=== PATIENT | male | born 1955 | race Caucasian/White ===

== ENCOUNTER 2021-07-05 15:13 | Emergency (ER) | payer MEDICARE, BC ==
--- NOTE | 2021-07-05 16:11 | EDM.PDOC ---
ED HPI GENERAL MEDICAL PROBLEM - General Stated Complaint: FISH HOOK IN LEFT THUMB Time Seen by Provider: 07/05/21 15:45 - History of Present Illness INITIAL COMMENTS - FREE TEXT/NARRATIVE: Pt comes in with a fish hook embedded in the Lt thumb, distal aspect. Happened while fishing today. He is not on any blood thinners. He thinks he may be current on Tetanus status. ED ROS GENERAL - Review of Systems Review Of Systems: Comprehensive ROS is negative, except as noted in HPI. Skin: Reports: Other (fish hook in lt thumb.) ED EXAM, GENERAL - Physical Exam Exam: See Below Skin Exam: Other (1 hook of a treble hook is embedded in the distal Lt thumb. No active bleeding.) Course - Re-Assessments/Exams Free Text/Narrative Re-Assessment/Exam: 07/05/21 16:08 I cleansed the area with alcohol, then used 1% Lidocaine for local anesthesia. Then I taped off the other hooks. Then using the string / yank method removed the hook on the 1st attempt. Pt tolerated the procedure well. Gauze was held to the site for a couple minutes. Nursing then applied a band - aid. He is to monitor for infection. Keep the site covered for a couple days. He is going home tomorrow - He is to call his clinic back home and check on his last Tetanus shot. He has no further questions. Departure - Departure Time of Disposition: 15:55 Disposition: Home, Self-Care 01 Condition: Good Clinical Impression: Fish hook injury of left thumb Qualifiers: Encounter type: initial encounter Qualified Code(s): S69.92XA - Unspecified injury of left wrist, hand and finger(s), initial encounter - Discharge Information *PRESCRIPTION DRUG MONITORING PROGRAM REVIEWED*: No *COPY OF PRESCRIPTION DRUG MONITORING REPORT IN PATIENT ELISA: No Instructions: Puncture Wound, [id number] Referrals: PCP,None [Primary Care Provider] - Additional Instructions: Notify your provider to see if you were given a Tetanus 5 years ago if not see provider to Tetanus. Monitor sign of infection, increased redness pain or swelling
== END 2021-07-05 15:54 | disposition home or self-care (01) ==
LOC: LB.ED 15:13
DX: S60.352A Superficial foreign body of left thumb, initial encounter (principal); W45.8XXA Other foreign body or object entering through skin, initial encounter
CPT/HCPCS: 99283